=== PATIENT | female | born 1990 | race Caucasian/White ===

== ENCOUNTER 2016-09-12 20:26 | Emergency (ER) | payer BC ==
[~2016-09-12] VITALS: Ht 167.6 cm; Wt 104.3 kg
[~2016-09-12 20:26] MED LIST: ONDA4TAB7 SL
[2016-09-12 20:32] VITALS: TEMP 36.9; Ht 167.6 cm; Wt 104.3 kg
[2016-09-12] MEDS ORDERED: MULT-240 PO (20:57)
[2016-09-12] MEDS ORDERED: LEVOIUD INT UTER (20:57)
[2016-09-12] MEDS ORDERED: RANI150T3 PO (20:57)
--- NOTE | 2016-09-12 20:59 | EMERGENCY ROOM VISIT NOTE ---
History Report prepared by Jay: Soniya Barreto Under the Supervision of: Francois BahO. First contact with patient: 20:42 Chief Complaint: ABDOMINAL PAIN Stated Complaint: LOWER STOMACH PAIN, REFERRED BY History of Present Illness The patient is a 26 year old female who presents to the Emergency Room with complaints of intermittent lower abdominal pain that began on Monday. She currently rates her discomfort as a 3/10 in severity. The patient states that on Monday she noticed lower abdominal cramps. She additionally notes that she developed diarrhea on Monday. No blood. The patient states that the pain is intermittently sharp. She states that her diarrhea has started to subside, but still reports the pain. The patient states that she experiences the pain every 20-30 minutes, noting that it lasts 5-10 seconds. She states that the pain radiates into her back and notes increased abdominal distension and bloating. The patient reports an increase in episodes with eating, drinking, or movement. She states that she has had a decrease in appetite and fluid intake. The patient denies any history of stomach problems or gynecological issues. She is unsure if she may be . The patient states that her menstrual cycle is abnormal. She denies any recent travel, fever, chills, nausea, vomiting, urinary symptoms, vaginal bleeding, or abnormal vaginal discharge. Source of History: patient Onset: Monday Position: abdomen (lower) Symptom Intensity: 3/10 Quality: sharp, cramping Timing: intermittent Modifying Factors (Worsening): eating, drinking, movement Associated Symptoms: + diarrhea, No fevers, No chills, No nausea, No vomiting, No urinary symptoms Note: Associated Symptoms: abdominal distension and bloating Review of Systems See HPI for pertinent positives & negatives. A total of 10 systems reviewed and were otherwise negative. Past Medical & Surgical Medical Problems: (1) Asthma, Unspecified (2) Hematoma Of Vulva (3) Obesity, Nos (4) Personal History Of Gestational Diabetes (5) Sprain Of Ankle Nos Family History No pertinent family history stated. Social History Smoking Status: Former Smoker Alcohol Use: occasionally Occupation Status: employed Current/Historical Medications Scheduled Dicyclomine Hcl (Bentyl), 20 MG PO Q8 Metronidazole (Flagyl), 500 MG PO TID Multiple Vitamins W/ Minerals (Womens One Daily), 1 TAB PO DAILY Ranitidine Hcl (Zantac), 150 MG PO BID Scheduled PRN Hydrocodone/Acetaminophen 5MG/325MG ([place] 5MG/325MG), 1 TABLET PO Q8 PRN for Pain Miscellaneous Medications Levonorgestrel (Iud) (Mirena), 20 MCG INT UTER Allergies Coded Allergies: No Known Allergies (Unverified , 08/02/14) Physical Exam Vital Signs Date Time Temp Pulse Resp B/P (MAP) Pulse Ox O2 Delivery O2 Flow Rate FiO2 09/13/16 00:31 69 18 137/93 98 Room Air 09/12/16 23:30 70 145/105 97 Room Air 09/12/16 23:18 70 18 148/96 97 Room Air 09/12/16 21:26 71 20 142/110 98 Room Air 09/12/16 20:32 36.9 85 20 170/100 96 Room Air Physical Exam GENERAL: alert, well appearing, well nourished, no distress, non-toxic EYE EXAM: normal conjunctiva, PERRL and EOM's grossly intact OROPHARYNX: no exudate, no erythema, lips, buccal mucosa, and tongue normal and mucous membranes are moist NECK: supple, no nuchal rigidity, no adenopathy, non-tender LUNGS: Clear to auscultation. Normal chest wall mechanics, no w/r/r HEART: no murmurs, S1 normal and S2 normal ABDOMEN: Lower abdominal tenderness. abdomen soft, normo-active bowel sounds, no masses, no rebound or guarding. BACK: Back is symmetrical on inspection and there is no deformity, no midline tenderness, no CVA tenderness. SKIN: no rashes and no bruising UPPER EXTREMITIES: upper extremities are grossly normal. LOWER EXTREMITIES: No pitting edema. NEURO EXAM: Normal sensorium, cranial nerves II-XII grossly intact, normal speech, no gross weakness of arms, no gross weakness of legs. Medical Decision & Procedures ER Provider Diagnostic Interpretation: Radiology results have been interpreted by the radiologist and reviewed by me. CHEST AND ABDOMEN 2 VIEWS HISTORY: lower abd pain COMPARISON: Chest and abdominal series 04/12/2010. FINDINGS: The lungs are clear. The cardiomediastinal silhouette is within normal limits. There is no pneumoperitoneum or pneumatosis. The bowel gas pattern is unremarkable. No evidence for bowel obstruction. No pathologic calcifications. Mild S-shaped scoliosis at the thoracolumbar junction. An intrauterine device is seen within the mid pelvis. IMPRESSION: No acute cardiopulmonary process. No evidence for bowel obstruction. Electronically signed by: Ashish Cox M.D. 09/12/2016 10:17 PM Dictated Date/Time: 09/12/2016 10:[address] ABDOMEN AND PELVIS: Impression: Moderate bowel thickening of the ascending colon which may be in part due to underdistention. However, findings are suggestive of a nonspecific colitis. Additional findings: Visualized lower thorax demonstrates bilateral breast augmentation. Decreased attenuation of the liver suggesting hepatic steatosis. The gallbladder, spleen, pancreas, and adrenal glands are unremarkable. The kidneys, ureters and urinary bladder ar unremarkable. An IUD is noted within the endometrium appears to be in appropriate position. Probable dominant follicle within the left ovary measured 2.1 cm. The appendix is unremarkable. Trace free fluid in the pelvis. No acute osseous abnormality. Radiologist: Cholo Edouard MD Study ready at 2314 and initial results transmitted at 2334 Laboratory Results 09/12/16 21:10 Red Blood Count 4.57, Mean Corpuscular Volume 94.5, Mean Corpuscular Hemoglobin 32.2, Mean Corpuscular Hemoglobin Concent 34.0, Mean Platelet Volume 9.4, Neutrophils (%) (Auto) 62.0, Lymphocytes (%) (Auto) 30.1, Monocytes (%) (Auto) 6.1, Eosinophils (%) (Auto) 1.2, Basophils (%) (Auto) 0.4, Neutrophils # (Auto) 8.19, Lymphocytes # (Auto) 3.97, Monocytes # (Auto) 0.81, Eosinophils # (Auto) 0.16, Basophils # (Auto) 0.05 09/12/16 21:10 Test 09/12/16 21:10 White Blood Count 13.21 K/uL (4.8-10.8) Red Blood Count 4.57 M/uL (4.2-5.4) Hemoglobin 14.7 g/dL (12.0-16.0) Hematocrit 43.2 % (37-47) Mean Corpuscular Volume 94.5 fL (80-100) Mean Corpuscular Hemoglobin 32.2 pg (25-34) Mean Corpuscular Hemoglobin Concent 34.0 g/dl (32-36) Platelet Count 304 K/uL (130-400) Mean Platelet Volume 9.4 fL (7.4-10.4) Neutrophils (%) (Auto) 62.0 % Lymphocytes (%) (Auto) 30.1 % Monocytes (%) (Auto) 6.1 % Eosinophils (%) (Auto) 1.2 % Basophils (%) (Auto) 0.4 % Neutrophils # (Auto) 8.19 K/uL (1.4-6.5) Lymphocytes # (Auto) 3.97 K/uL (1.2-3.4) Monocytes # (Auto) 0.81 K/uL (0.11-0.59) Eosinophils # (Auto) 0.16 K/uL (0-0.5) Basophils # (Auto) 0.05 K/uL (0-0.2) RDW Standard Deviation 40.1 fL (36.4-46.3) RDW Coefficient of Variation 11.9 % (11.5-14.5) Immature Granulocyte % (Auto) 0.2 % Immature Granulocyte # (Auto) 0.03 K/uL (0.00-0.02) Urine Color YELLOW Urine Appearance CLEAR (CLEAR) Urine pH 6.0 (4.5-7.5) Urine Specific [place] 1.013 (1.000-1.030) Urine Protein NEG (NEG) Urine Glucose (UA) NEG (NEG) Urine Ketones NEG (NEG) Urine Occult Blood NEG (NEG) Urine Nitrite NEG (NEG) Urine Bilirubin NEG (NEG) Urine Urobilinogen NEG (NEG) Urine Leukocyte Esterase NEG (NEG) Anion Gap 8.0 mmol/L (3-11) Est Creatinine Clear Calc Drug Dose 110.9 ml/min Estimated GFR () 97.6 Estimated GFR (Non- 84.2 BUN/Creatinine Ratio 7.4 (10-20) Lactic Acid Level 1.6 mmol/L (0.4-2.0) Calcium Level 9.3 mg/dl (8.5-10.1) Total Bilirubin 0.5 mg/dl (0.2-1) Aspartate Amino Transf (AST/SGOT) 23 U/L (15-37) Alanine Aminotransferase (ALT/SGPT) 49 U/L (12-78) Alkaline Phosphatase 62 U/L (45-117) Total Protein 8.5 gm/dl (6.4-8.2) Albumin 4.5 gm/dl (3.4-5.0) Globulin 4.0 gm/dl (2.5-4.0) Albumin/Globulin Ratio 1.1 (0.9-2) Lipase 215 U/L (73-393) Human Chorionic Gonadotropin, Qual NEG (NEG) Laboratory results per my review. Medications Administered Medications (Trade) Dose Ordered Sig/Cristal Route Start Time Stop Time Status Last Admin Dose Admin Dicyclomine HCl (Bentyl Tab) 20 mg NOW STAT PO 09/12/16 21:02 09/12/16 21:04 DC 09/12/16 21:23 20 MG Ketorolac Tromethamine (Toradol Inj) 30 mg NOW STAT IV 09/12/16 21:02 09/12/16 21:04 DC 09/12/16 21:24 30 MG Metronidazole (Flagyl Tab) 500 mg NOW STAT PO 09/12/16 23:42 09/12/16 23:43 DC 09/12/16 23:50 500 MG Acetaminophen/ Hydrocodone Bitart ([place] 5/325mg Home Pack) 1 homepack UD ONCE PO 09/13/16 00:30 09/13/16 00:31 DC 09/13/16 00:39 1 HOMEPACK ED Course 2049: The patient was evaluated in room B10. A complete history and physical exam was performed. 2101: Ordered Toradol Inj 30 mg IV, Bentyl Tab 20 mg PO. 8: I reevaluated the patient and she is feeling better. 2: Ordered Flagyl Tab 500 mg PO. 9: I reevaluated the patient and she is resting comfortably. I updated her on her results and I discussed the treatment plan. She verbalized complete understanding and agreement. She is ready to go home shortly. 2359: Ordered [place] 5/325 Tab 1 tab. Medical Decision Differential diagnoses includes but is not limited to gastritis, peptic ulcer disease, GERD, gallbladder disease, pancreatitis, small bowel obstruction, acute coronary syndrome, pericarditis, ischemic bowel, irritable bowel disease, irritable bowel syndrome, appendicitis, diverticulitis, malignancy, hernia, urinary tract infection, torsion, /ectopic (if female), perforation, trauma, infectious. Medication Reconciliation: I attest that I have personally reviewed the patient' s current medication list. Blood pressure screening: Patient was found to have an elevated blood pressure and was referred to their primary doctor for recheck and further treatment. No risk factors for C. difficile no recent travel for other infectious diarrhea. Patient with colitis and no prior history of inflammatory bowel disease. No other acute GI or findings, no evidence of bacteremia/sepsis, doubt ischemic colitis. Patient well-appearing here, mild leukocytosis noted, stable vital signs and no fevers. Pain improved following medication here, patient with no vomiting. Discussed need for close follow-up and possible need for additional GI evaluation. Discussed use of antibiotics here. Patient verbalized understanding of all this. All questions answered bedside. Discussed with patient symptoms to watch and return for, she was agreeable with plan. Impression Primary Impression: LOWER ABDOMINAL PAIN, UNSPECIFIED Additional Impressions: Colitis Diarrhea Scribe Attestation The scribe's documentation has been prepared under my direction and personally reviewed by me in its entirety. I confirm that the note above accurately reflects all work, treatment, procedures, and medical decision making performed by me. Departure Information Dispostion Home / Self-Care Prescriptions Hydrocodone/Acetaminophen 5MG/325MG ([place] 5MG/325MG) Tab 1 TABLET PO Q8 Y for Pain, #5 TAB PRN PAIN Prov: Pepper Vazquez, DO 09/12/16 Dicyclomine Hcl (BENTYL) 20 Mg Tab 20 MG PO Q8 for Pain, #20 TAB Prov: Pepper Vazquez, DO 09/12/16 Metronidazole (FLAGYL) 500 Mg Tab 500 MG PO TID for 7 Days, #21 TAB Prov: Pepper Vazquez, DO 09/12/16 Referrals No Doctor, Assigned (PCP) Forms HOME CARE DOCUMENTATION FORM, IMPORTANT VISIT INFORMATION Patient Instructions My [facility] Additional Instructions Please take the antibiotic as prescribed. You may use the pain medication or cramping medication as prescribed. Do not take the pain medication and drive or drink alcohol. Please make sure you're drinking plenty of water. Please call and follow up with your family doctor in the next 2-3 days. If you develop worsening pain, notice blood with the bowel movement, have vomiting, fevers, or you have any other new or concerning symptoms, please return the emergency room. Problem Qualifiers Additional Impressions: Diarrhea Diarrhea type: unspecified type Qualified Codes: R19.7 - Diarrhea, unspecified
[2016-09-12] MEDS ORDERED: KETOROLAC TROMETHAMINE 30 MG/ML VIAL IV STA (21:02)
[2016-09-12] MEDS ORDERED: DICYCLOMINE HCL 20 MG TAB PO STA (21:02)
[2016-09-12 21:23] LABS: BASO % 0.4 %; BASO ABS # 0.05 K/uL (0-0.2); COMPLETE YES; EOS % 1.2 %; HEMATOCRIT 43.2 % (37-47); IG% 0.2 %; LYMPH % 30.1 %; LYMPH ABS # 3.97 K/uL (1.2-3.4); MEAN CELL VOLUME 94.5 fL (80-100); MEAN CORPUSCULAR HEMOGLOBIN 32.2 pg (25-34); MEAN PLATELET VOLUME 9.4 fL (7.4-10.4); MONO % 6.1 %; PLATELET COUNT 304 K/uL (130-400); RED BLOOD COUNT 4.57 M/uL (4.2-5.4); WHITE BLOOD COUNT 13.21 K/uL (4.8-10.8)
[2016-09-12 21:29] LABS: URINE APPEARANCE CLEAR (CLEAR); URINE BILIRUBIN NEG (NEG); URINE COLOR YELLOW; URINE NITRITE NEG (NEG); URINE SPECIFIC GRAVITY 1.013 (1.000-1.030); UROBILINOGEN NEG (NEG); ZZUR CULT IF INDIC CLEAN CATCH NO
[2016-09-12 21:32] LABS: MANUAL MICROSCOPIC REQUIRED? NO; REVIEW REQ? NO
[2016-09-12 21:38] LABS: BUN/CREATININE RATIO 7.4 (10-20); CALCIUM 9.3 mg/dl (8.5-10.1); CREATININE 0.93 mg/dl (0.60-1.20); POTASSIUM 3.5 mmol/L (3.5-5.1)
[2016-09-12 21:41] LABS: ALB/GLOB RATIO 1.1 (0.9-2)
[2016-09-12 21:43] LABS: PREG INTERNAL NEGATIVE QC NEG CLEAR BACKGROUND; PREG INTERNAL POSITIVE QC POS CONTROL LINE
--- NOTE | 2016-09-12 22:18 | DIAGNOSTIC IMAGING REPORT ---
CHEST AND ABDOMEN 2 VIEWS HISTORY: lower abd pain COMPARISON: Chest and abdominal series 04/12/2010. FINDINGS: The lungs are clear. The cardiomediastinal silhouette is within normal limits. There is no pneumoperitoneum or pneumatosis. The bowel gas pattern is unremarkable. No evidence for bowel obstruction. No pathologic calcifications. Mild S-shaped scoliosis at the thoracolumbar junction. An intrauterine device is seen within the mid pelvis. IMPRESSION: No acute cardiopulmonary process. No evidence for bowel obstruction. Electronically signed by: Ashish Cox M.D. 09/12/2016 10:17 PM Dictated Date/Time: 09/12/2016 10:16 PM
[2016-09-12] MEDS ORDERED: METRONIDAZOLE 250 MG TAB PO STA (23:42)
[2016-09-12] MEDS ORDERED: DICY20TA35 PO (23:58)
[2016-09-12] MEDS ORDERED: HYDR-5688 PO (23:58)
[2016-09-12] MEDS ORDERED: METR500T PO (23:58)
[2016-09-12] MEDS ORDERED: HYDROCODONE/ACETAMOPHEN 5/325MG TAB PO STA (23:59)
[2016-09-13] MEDS ORDERED: NORCO 5/325MG HOME PACK PO ONE (00:30)
[2016-09-13 00:31] VITALS: BP 137/93; PULSE 69; O2SAT 98
--- NOTE | 2016-09-13 06:53 | DIAGNOSTIC IMAGING REPORT ---
CT OF THE ABDOMEN AND PELVIS WITHOUT CONTRAST CLINICAL HISTORY: Lower abdominal pain and diarrhea. COMPARISON STUDY: Abdominal series April 12, 2010 and September 12, 2016. TECHNIQUE: Axial images of the abdomen and pelvis were obtained without IV contrast. Images were reviewed in the axial, sagittal, and coronal planes. FINDINGS: The visualized portions of the lower chest demonstrate bilateral silicone breast implants. No pneumatosis, free air or portal venous gas is present. There is fatty infiltration of the liver. The spleen, adrenal glands, kidneys and pancreas are unremarkable on this unenhanced exam. There is no hydronephrosis. There is no evidence for a bowel obstruction. There is moderate wall thickening of the ascending colon. There is trace associated pericolonic infiltration. The appendix is normal. An IUD is in place. The ovaries are not enlarged. Skeletal structures are unremarkable. There is no lymphadenopathy. IMPRESSION: 1. Moderate wall thickening of the ascending colon consistent with a nonspecific colitis. Normal appendix. 2. Fatty infiltration of the liver. Electronically signed by: Dagoberto Lugo M.D. 09/13/2016 6:52 AM Dictated Date/Time: 09/13/2016 6:48 AM
== END 2016-09-13 00:40 | disposition home or self-care (01) ==
LOC: C.EDB 20:27
DX: K52.9 Noninfective gastroenteritis and colitis, unspecified (principal); R10.30 Lower abdominal pain, unspecified; R19.7 Diarrhea, unspecified; J45.909 Unspecified asthma, uncomplicated; Z87.828 Personal history of other (healed) physical injury and trauma; Z87.891 Personal history of nicotine dependence; Z79.899 Other long term (current) drug therapy

== ENCOUNTER 2016-12-04 21:15 | Emergency (ER) | payer BC ==
[~2016-12-04] VITALS: Ht 170.2 cm; Wt 105.5 kg
[~2016-12-04 21:15] MED LIST changes: +HYDR-5688 PO; +LEVOIUD INT UTER; +MULT-240 PO; -ONDA4TAB7 SL; +RANI150T3 PO
[2016-12-04 21:25] VITALS: BP 167/96; PULSE 83; TEMP 36.6; O2SAT 98; Ht 170.2 cm; Wt 105.5 kg
[2016-12-04] MEDS ORDERED: METOCLOPRAMIDE HCL INJ 5 MG/ML 2 ML VIAL IV STA (22:01)
[2016-12-04] MEDS ORDERED: SODIUM CHLORIDE 0.9% 1000ML 1,000 ML IV STA (22:01)
[2016-12-04] MEDS ORDERED: DiphenhydrAMINE HCL 50 MG/ML VIAL IV STA (22:01)
[2016-12-04] MEDS ORDERED: KETOROLAC TROMETHAMINE 30 MG/ML VIAL IV STA (22:01)
--- NOTE | 2016-12-05 03:15 | EMERGENCY ROOM VISIT NOTE ---
History First contact with patient: 21:58 Chief Complaint: HEADACHE Stated Complaint: EXTREME ALEMAN,VOMITING History of Present Illness The patient is a 26 year old female who presents to the Emergency Room with complaints of headache with nausea and vomiting since in severity for the past day. Patient woke up with a mild headache. She was working outside and headache got worse and tried Tylenol with no relief of symptoms. Patient has a history of migraines. This feels similar. Headache is located in the left frontal region. Currently 8 out of 10 described as throbbing. Nothing makes it better or worse. It does not Radiate. Patient denies sudden onset headache , neck status, fever, chills, cold symptoms, localized weakness, vision problems , chest pain, abdominal pain or any other medical complaints. Review of Systems See HPI for pertinent positives & negatives. A total of 10 systems reviewed and were otherwise negative. Past Medical/Surgical History Medical Problems: (1) Asthma, Unspecified (2) Hematoma Of Vulva (3) Obesity, Nos (4) Personal History Of Gestational Diabetes (5) Sprain Of Ankle Nos Social History Smoking Status: Never Smoker Alcohol Use: occasionally Drug Use: none Housing Status: lives with family Occupation Status: employed Current/Historical Medications Scheduled Multiple Vitamins W/ Minerals (Womens One Daily), 1 TAB PO DAILY Ranitidine Hcl (Zantac), 150 MG PO QAM Miscellaneous Medications Levonorgestrel (Iud) (Mirena), 20 MCG INT UTER Physical Exam Vital Signs Date Time Temp Pulse Resp B/P (MAP) Pulse Ox O2 Delivery O2 Flow Rate FiO2 12/04/16 21:25 36.6 83 16 167/96 98 Room Air Pain Rating (0-10): 1.0 Physical Exam VITALS: Vitals are noted on the nurse's note and reviewed by myself. Vital signs stable. GENERAL: Pleasant female, in no acute distress, nondiaphoretic, well-developed well-nourished. SKIN: The skin was without rashes, erythema, edema, or bruising. There is no tenting of the skin. Capillary reflex less than 2 seconds. HEAD: Normocephalic atraumatic. EARS: External auditory canals clear, tympanic membranes pearly francisco without erythema or effusion bilaterally. EYES: Pupils equal round and reactive to light and accommodation. Conjunctivae without injection, sclerae without icterus. Extraocular movements intact. NOSE: Patent, turbinates without inflammation or discharge. No sinus tenderness. MOUTH: Mucous membranes moist. Pharynx without erythema or exudate. Uvula midline. Airway patent. Tongue does not deviate. NECK: Supple without nuchal rigidity. No lymphadenopathy. No thyromegaly. Cervical spine is nontender. No JVD. HEART: Regular rate and rhythm without murmurs gallops or rubs. LUNGS: Clear to auscultation bilaterally without wheezes, rales or rhonchi. No dullness to percussion. No retractions or accessory muscle use. ABDOMEN: Positive bowel sounds x 4. Normal tympanic percussion. Soft, nontender, without masses or organomegaly. Cassidy sign negative. No guarding or rebound tenderness. MUSCULOSKELETAL: No muscle atrophy, erythema, or edema noted. NEURO: Patient was alert and oriented to person place and time. Normal sensation to light and sharp touch. No focal neurological deficits. Cranial nerves II-12 grossly intact. No pronator drift. Cerebellar exam intact. Medical Decision & Procedures Medications Administered Medications (Trade) Dose Ordered Sig/Cristal Route Start Time Stop Time Status Last Admin Dose Admin Ketorolac Tromethamine (Toradol Inj) 30 mg NOW STAT IV 12/04/16 22:01 12/04/16 22:03 DC 12/04/16 22:36 30 MG Metoclopramide HCl (Reglan Inj) 10 mg NOW STAT IV 12/04/16 22:01 12/04/16 22:03 DC 12/04/16 22:36 10 MG Diphenhydramine HCl (Benadryl Inj) 12.5 mg NOW STAT IV 12/04/16 22:01 12/04/16 22:04 DC 12/04/16 22:36 12.5 MG Sodium Chloride 1,000 ml @ 999 mls/hr Q1H1M STAT IV 12/04/16 22:01 12/04/16 23:01 DC 12/04/16 22:01 999 MLS/HR ED Course Prior records/ancillary studies reviewed. Additional history obtained from family. Triage Nursing notes reviewed. The patient's history was concerning for headache. Differential diagnosis: Etiologies such as migraine headache, meningitis, sinusitis, CO exposure, ICH, SAH, infection, tumor, headache, sinus thrombosis, arterial dissection, as well as others were entertained. Physical examination findings: As above. Non-focal. ER treatment provided: Toradol, Reglan, Benadryl, IV fluids On reassessment the patient felt better. Diagnostics interpreted by me: Deferred This appears to be consistent with migraine. Patient has a long-standing history of this and symptoms are similar. Patient was neurovascularly and neurologically intact. She is well-appearing. She had no signs of meningitis. She is advised to rest, stay well-hydrated and to follow-up family care in a few days or here in the ER sooner for headache, fevers, confusion, lethargy, worsening signs or symptoms or as needed. By the evaluation outlined above emergent etiologies such as meningitis, sinusitis, CO exposure, ICH, SAH, infection, temporal arteritis, tumor, sinus thrombosis, arterial dissection, as well as others were deemed relatively unlikely. The pt informed about the findings as listed above. All questions were answered and pleased with the treatment. Return instructions were outlined and the patient was discharged in stable condition. Referral: The patient was referred back to their primary care physician for follow-up in 2 to 3 days for a recheck of the current condition. Medical Decision As above Impression Primary Impression: Migraine Departure Information Dispostion Home / Self-Care Condition GOOD Referrals No Doctor, Assigned (PCP) Forms HOME CARE DOCUMENTATION FORM, IMPORTANT VISIT INFORMATION Patient Instructions Headaches Migraine and Tension, My [facility] Additional Instructions DO NOT drive, drink alcohol, operate machinery, or perform dangerous activities today. You were given medications in the ER that can affect your ability to safely function or operate a vehicle. Rest today in a quiet, peaceful, dark environment and get a full 8-10 hrs of sleep tonight. Avoid loud noises, smoke/smoking, alcohol, bright lights, stress, or physical exertion today to minimize the chance the headache may return. Continue current medications. Ibuprofen(Motrin, Advil) may be used for fever or pain. Use 600mg every six hours as needed. Take with food. Avoid using more than 2400mg in a 24 hour period. Do not use 2400mg per day for more than three consecutive days without physician direction. Prolonged inappropriate use can lead to stomach upset or ulcers. (AND/OR) Acetaminophen(Tylenol) may be used for fever or pain. Use 1000mg every six hours as needed. Avoid using more than 3000mg in a 24 hour period. Return to the ER for passing out, worsening headache, vision problems, neck stiffness/pain, fevers, vomiting, worsening of your condition, or as needed. Follow up with your primary physician and/or a neurologist in 2-3 days for a recheck of your current condition. Problem Qualifiers Primary Impression: Migraine Migraine type: without aura Status migrainosus presence: without status migrainosus Intractability: not intractable Qualified Codes: G43.009 - Migraine without aura, not intractable, without status migrainosus
== END 2016-12-04 23:53 | disposition home or self-care (01) ==
LOC: C.EDB 21:16 → C.EDA 23:53
DX: G43.009 Migraine without aura, not intractable, without status migrainosus (principal); J45.909 Unspecified asthma, uncomplicated; E66.9 Obesity, unspecified

== ENCOUNTER 2022-06-16 10:28 | Observation (INO) ==
[2022-06-16 12:38] LABS: Basophils # (auto) 0.13 K/uL (0-0.2); Basophils % (auto) 0.6 %; Eosinophils # (auto) 0.23 K/uL (0-0.50); Hematocrit (blood only) 43.8 % (37.0-47.0); Hemoglobin 14.9 g/dl (12.0-16.0); Immature Granulocytes # (auto) 0.13 K/uL (0.01-0.20); Immature Granulocytes % (auto) 0.6 %; Lymphocytes # (auto) 2.15 K/uL (1.2-3.4); Lymphocytes % (auto) 9.7 %; Mean Corpuscular Hemoglobin 32.7 pg (25.0-34.0); Mean Corpuscular Volume 96.3 fL (80.0-100.0); Mean Platelet Volume 9.5 fL (9.4-12.4); Monocytes # (auto) 0.92 K/uL (0.11-0.59); Monocytes % (auto) 4.2 %; Neutrophils # (auto) 18.58 K/uL (1.40-6.50); Neutrophils % (auto) 83.9 %; Platelet Count 454 K/uL (130-400); RDW Coefficient of Variation 11.9 % (11.5-14.5); RDW Standard Deviation 41.5 fL (36.4-46.3); Red Blood Count 4.55 M/uL (4.20-5.40); White Blood Count 22.14 K/ul (4.8-10.8)
[2022-06-16] MEDS ORDERED: ACETAMINOPHEN 1,000 MG/100 ML VIAL IV STA (12:50)
[2022-06-16] MEDS ORDERED: SODIUM CHLORIDE 0.9% 1000ML 1,000 ML IV ONE (12:50)
[2022-06-16] MEDS ORDERED: ONDANSETRON INJ 2 MG/ML 2 ML VIAL IV STA ×2 (12:50→15:39)
--- NOTE | 2022-06-16 12:54 | Emergency Department Note ---
Impression & Plan Leukocytosis, Abdominal pain, RUQ, Acute epigastric pain ED Provider Note Name: KARIE DOHERTY Age: 32 Sex: F Arrives Via: Walk-In Informant: Patient ED Provider: David Mccabe MD Chief Complaint: Epigastric discomfort Impression: As per impressions above Medical Decision Makin-year-old female arrives for evaluation of epigastric pain. Third time this is occurred over the last month. Unrelenting this time with associated nausea. On examination right upper quadrant epigastric tenderness palpation. Laboratory results White count 22. Ultrasound right upper quadrant reveals no concerning findings per radiologist other than stone. She is continuing to have right upper quadrant pain this CT was obtained which also was read as unremarkable. On multiple repeat evaluations patient continues to have right upper quadrant tenderness palpation despite pain control with Dilaudid eventually. I discussed with general surgery given my concerns of continue abdominal pain elevated white blood cell count and her exam being very consistent with cholecystitis. They will evaluate patient further. Prior Medical Record and Triage/Nursing Notes reviewed by Me Differentials:Cholecystitis, cholelithiasis, pancreatitis, GERD, aortic path ology, pyelonephritis, renal colic amongst many other pathologies considered Vital Signs: reviewed and remarkable for no significant abnormalities Interventions: Normal saline bolus 1 L IV, Zofran 4 mg IV, Tylenol 1 g IV Labs:Reviewed and remarkable for elevated white blood cell count Imaging:Ultrasound gallbladder as per my informal interpretation there is stones throughout the gallbladder without any thickened gallbladder wall or pericholecystic fluid. CT of the abdomen pelvis with IV contrast as per my informal interpretation. There is no overt obstruction, free air or free fluid. She had a period see radiologist report for full read Consults:[facility] Surg Service Plan: Disposition:Hospitalization Condition: Good History of Present Illness:32-year-old female arrives for evaluation of abdominal pain. Patient with 3 episodes of the last month of 5 to 6 hours of right upper quadrant epigastric abdominal pain associated with nausea vomiting. The first 2 times pain resolved on its own however today it has not resolved. Continues to have epigastric right upper quadrant pain. Associated nausea vomiting. Also notes some diarrhea today. Fevers, chills, chest pain, shortness of breath, back pain, flank pain, urinary/other concerning signs or symptoms. No previous abdominal issues. All 3 times seem to have occurred after eating ice cream/cake. Past History:HTN. Previously required some eye surgery, no previous abdominal surgeries. Mother has a history of gallbladder out in her 30s Home Medications:Lisinopril Allergies:No known drug allergies Vitals:Blood Pressure: 151/86, Pulse 91, RR 16, T 36.8C, O2 99% on RA Physical Exam: GENERAL: Patient is uncomfortable appearing and in moderate distress. EYES: No scleral icterus, unremarkable pupils. ENT: Mucous membranes dry, no nasal congestion. GASTROINTESTINAL: Epigastric/right upper quadrant tenderness palpation and some guarding, no overt peritonitis of the rest of the abdomen. EXTREMITIES: Normal motion all extremities, no cyanosis, no edema. NEUROLOGIC: Alert and oriented, no acute motor or sensory deficits, no focal weakness, cranial nerves grossly intact. SKIN: No rash, no jaundice, no diaphoresis. PSYCH: Appropriate GCS: 15 ED Course: Times/Reassessments: Patient with gradually worsening pain despite initial improvement with Tylenol IV. She was given narcotic with improvement in pain David Mccabe MD Past Med/Surg History Medical History Anxiety GERD (gastroesophageal reflux disease) Migraine Surgical History History of breast surgery elective enlargement, bilateral History of colonoscopy History of colposcopy Family History Denies family history of Ovarian cancer Breast cancer Colorectal cancer Social History Smoking Status: Never smoker Hx Alcohol Use: No Hx Substance Use: No Preferred Language: [place] Communication Ability: Effective Taper Operator Required: No Beliefs That Will Affect Care: None Current Living Situation: Family Other Information That Helps Us Care for You: No Feels Safe at Home: Yes Safety Concerns: Feels Safe At This Time Assistive Devices: Glasses Allergies Allergies Allergy/AdvReac Type Severity Reaction Status Date / Time No Known Allergies Allergy Verified 06/16/22 15:53 Home Meds Home Medications Medication Instructions Recorded Confirmed fluoxetine 20 mg capsule (Prozac) 20 mg PO DAILY 08/22/19 06/16/22 levonorgestrel 21 mcg/24 hours (8 20 mcg intrauterine CONTINOUS 08/22/19 06/16/22 yrs) 52 mg intrauterine device (Mirena) omeprazole 20 mg tablet,delayed 20 mg PO DAILY 09/10/20 06/16/22 release fluoxetine 40 mg capsule 40 mg PO DAILY 06/16/22 06/16/22 multivitamin 1 tab PO DAILY 06/16/22 06/16/22 trazodone 50 mg tablet 50 mg PO HS PRN Sleep 06/16/22 06/16/22 Results & Data (ED) Vital Signs Vital Signs - 24 hr 06/16/22 10:29 06/16/22 10:29 06/16/22 13:20 Temperature 36.8 C 36.8 C Temperature Source Temporal Artery Scan Temporal Artery Scan Pulse Rate 91 H 106 H Pulse Rate from SpO2 Sensor 107 H Pulse Rhythm Respiratory Rate 16 16 16 Blood Pressure 151/86 H 140/79 Blood Pressure Mean 107 99 Pulse Oximetry 99 100 Oxygen Delivery Method Room Air Sepsis Recent Fever Within 48 Hours No Sepsis New/Unexplained Change in Mental Status N/A Sepsis Action Taken by Nursing No Action Required 06/16/22 13:20 06/16/22 13:28 06/16/22 16:07 Temperature Temperature Source Pulse Rate 103 H 98 H 108 H Pulse Rate from SpO2 Sensor Pulse Rhythm Regular Respiratory Rate 16 20 Blood Pressure 157/80 H Blood Pressure Mean 105 Pulse Oximetry 99 98 Oxygen Delivery Method Room Air Room Air Sepsis Recent Fever Within 48 Hours Sepsis New/Unexplained Change in Mental Status Sepsis Action Taken by Nursing Laboratory Data 06/16/22 11:55 06/16/22 11:55 Lab Results 06/16/22 06/16/22 06/16/22 Range/Units 11:55 11:55 13:10 WBC 22.14 H (4.8-10.8) K/ul RBC 4.55 (4.20-5.40) M/uL Hgb 14.9 (12.0-16.0) g/dl Hct 43.8 (37.0-47.0) % MCV 96.3 (80.0-100.0) fL MCH 32.7 (25.0-34.0) pg MCHC 34.0 (32.0-36.0) g/dL RDW Std Deviation 41.5 (36.4-46.3) fL RDW Coeff of Audi 11.9 (11.5-14.5) % Plt Count 454 H (130-400) K/uL MPV 9.5 (9.4-12.4) fL Immature Gran % (Auto) 0.6 % Neut % (Auto) 83.9 % Lymph % (Auto) 9.7 % [place] % (Auto) 4.2 % Eos % (Auto) 1.0 % Baso % (Auto) 0.6 % Neut # (Auto) 18.58 H (1.40-6.50) K/uL Lymph # (Auto) 2.15 (1.2-3.4) K/uL [place] # (Auto) 0.92 H (0.11-0.59) K/uL Eos # (Auto) 0.23 (0-0.50) K/uL Baso # (Auto) 0.13 (0-0.2) K/uL Immature Gran # (Auto) 0.13 (0.01-0.20) K/uL Sodium 136 (136-145) mmol/L Potassium 3.8 (3.5-5.1) mmol/L Chloride 100 (98-107) mmol/L Carbon Dioxide 22 (21-32) mmol/L Anion Gap 14 H (3-11) BUN 16 (6-23) mg/dl Creatinine 0.89 (0.6-1.2) mg/dl Est Cr Clr Drug Dosing 109.3 ml/min Est GFR ( Amer) 98.7 ml/min Est GFR (Non-Af Amer) 85.2 ml/min BUN/Creatinine Ratio 18.0 (10-20) Glucose 151 H (70-99(Fasting)) mg/dl Calcium 9.8 (8.6-10.3) mg/dl Total Bilirubin 0.6 (0.2-1.0) mg/dl AST 24 (13-39) U/L ALT 35 (7-52) U/L Alkaline Phosphatase 65 (34-104) U/L Total Protein 8.5 H (6.0-8.3) gm/dl Albumin 4.9 (3.4-5.0) gm/dl Globulin 3.6 (2.5-4.0) gm/dl Albumin/Globulin Ratio 1.4 (0.9-2) Lipase 25 (11-82) U/L Urine Color Dark Yellow Urine Appearance Cloudy A (Clear) Urine pH 5.5 (4.5-7.5) Ur Specific [place] 1.031 H (1.000-1.030) Urine Protein 2+ H (Negative) Urine Glucose (UA) Negative (Negative) Urine Ketones 1+ H (Negative) Urine Blood Negative (Negative) Urine Nitrite Negative (Negative) Urine Bilirubin Negative (Negative) Urine Urobilinogen Negative (Negative) Ur Leukocyte Esterase Negative (Negative) Urine WBC (Auto) 5-10 H (0-5) /hpf Urine RBC (Auto) 0-4 (0-4) /hpf U Hyaline Cast (Auto) 10-30 H (0-5) /lpf U Epithel Cells (Auto) >30 H (0-5) /lpf Urine Bacteria (Auto) 1+ H (Negative) SARS-CoV-2, RNA, NAAT (NEGATIVE) 06/16/22 Range/Units 16:08 WBC (4.8-10.8) K/ul RBC (4.20-5.40) M/uL Hgb (12.0-16.0) g/dl Hct (37.0-47.0) % MCV (80.0-100.0) fL MCH (25.0-34.0) pg MCHC (32.0-36.0) g/dL RDW Std Deviation (36.4-46.3) fL RDW Coeff of Audi (11.5-14.5) % Plt Count (130-400) K/uL MPV (9.4-12.4) fL Immature Gran % (Auto) % Neut % (Auto) % Lymph % (Auto) % [place] % (Auto) % Eos % (Auto) % Baso % (Auto) % Neut # (Auto) (1.40-6.50) K/uL Lymph # (Auto) (1.2-3.4) K/uL [place] # (Auto) (0.11-0.59) K/uL Eos # (Auto) (0-0.50) K/uL Baso # (Auto) (0-0.2) K/uL Immature Gran # (Auto) (0.01-0.20) K/uL Sodium (136-145) mmol/L Potassium (3.5-5.1) mmol/L Chloride (98-107) mmol/L Carbon Dioxide (21-32) mmol/L Anion Gap (3-11) BUN (6-23) mg/dl Creatinine (0.6-1.2) mg/dl Est Cr Clr Drug Dosing ml/min Est GFR ( Amer) ml/min Est GFR (Non-Af Amer) ml/min BUN/Creatinine Ratio (10-20) Glucose (70-99(Fasting)) mg/dl Calcium (8.6-10.3) mg/dl Total Bilirubin (0.2-1.0) mg/dl AST (13-39) U/L ALT (7-52) U/L Alkaline Phosphatase (34-104) U/L Total Protein (6.0-8.3) gm/dl Albumin (3.4-5.0) gm/dl Globulin (2.5-4.0) gm/dl Albumin/Globulin Ratio (0.9-2) Lipase (11-82) U/L Urine Color Urine Appearance (Clear) Urine pH (4.5-7.5) Ur Specific [place] (1.000-1.030) Urine Protein (Negative) Urine Glucose (UA) (Negative) Urine Ketones (Negative) Urine Blood (Negative) Urine Nitrite (Negative) Urine Bilirubin (Negative) Urine Urobilinogen (Negative) Ur Leukocyte Esterase (Negative) Urine WBC (Auto) (0-5) /hpf Urine RBC (Auto) (0-4) /hpf U Hyaline Cast (Auto) (0-5) /lpf U Epithel Cells (Auto) (0-5) /lpf Urine Bacteria (Auto) (Negative) SARS-CoV-2, RNA, NAAT NEGATIVE (NEGATIVE) Administered Medications Sodium Chloride (Nss 1000ml) 1,000 mls @ 100 mls/hr IV .Q10H DENISE Stop: 07/16/22 19:35 Last Admin: 06/17/22 03:45 Dose: 100 mls/hr Documented By: Infusion: 06/17/22 03:45 Dose: 100 mls/hr Documented By: Infusion: 06/17/22 00:09 Dose: 100 mls/hr Documented By: Infusion: 06/17/22 00:09 Dose: 0 mls/hr Documented By: Admin: 06/16/22 19:59 Dose: 100 mls/hr Documented By: YRIS Piperacillin Sod/Tazobactam (Sod 4.5 gm/ Dextrose) 120 mls @ 30 mls/hr IV Q8H DENISE; Protocol Stop: 06/26/22 19:59 Last Admin: 06/17/22 04:13 Dose: 30 mls/hr Documented By: Infusion: 06/17/22 00:32 Dose: 0 mls/hr Documented By: Admin: 06/16/22 20:13 Dose: 30 mls/hr Documented By: YRIS Discontinued Medications Hydromorphone HCl (Hydromorphone Inj 1 Mg/Ml Syringe) 1 mg IV NOW STA Stop: 06/16/22 15:40 Last Admin: 06/16/22 16:04 Dose: 1 mg Documented By: RENAE Sodium Chloride (Nss 1000ml) 1,000 mls @ 999 mls/hr IV .Q1H1M ONE Stop: 06/16/22 13:50 Last Infusion: 06/16/22 14:27 Dose: 0 mls/hr Documented By: Admin: 06/16/22 13:16 Dose: 999 mls/hr Documented By: RENAE Acetaminophen (Ofirmev) 1,000 mg in 100 mls @ 400 mls/hr IV NOW STA Stop: 06/16/22 13:04 Last Infusion: 06/16/22 13:36 Dose: 0 mls/hr Documented By: Admin: 06/16/22 13:18 Dose: 400 mls/hr Documented By: RENAE Sodium Chloride (Nss 1000ml) 250 mls @ 999 mls/hr IV .Q16M ONE Stop: 06/16/22 23:38 Last Infusion: 06/17/22 00:10 Dose: 0 mls/hr Documented By: Admin: 06/16/22 23:34 Dose: 999 mls/hr Documented By: YRIS Ioversol (Optiray 350 100ml) 90 ml IV ONCE ONE Stop: 06/16/22 15:00 Last Admin: 06/16/22 14:59 Dose: 90 ml Documented By: HARIS Ondansetron HCl (Ondansetron Inj 2 Mg/Ml 2 Ml Vial) 4 mg IV NOW STA Stop: 06/16/22 12:51 Last Admin: 06/16/22 13:17 Dose: 4 mg Documented By: RENAE Ondansetron HCl (Ondansetron Inj 2 Mg/Ml 2 Ml Vial) 4 mg IV NOW STA Stop: 06/16/22 15:40 Last Admin: 06/16/22 16:03 Dose: 4 mg Documented By: RENAE Discharge Plan Visit Data Chief Complaint: Abdominal Pain Stated Complaint: ABDOMINAL PAIN ED Provider: David Mccabe Discharge Problem: Leukocytosis, Abdominal pain, RUQ, Acute epigastric pain Patient Disposition: Admitted As Inpatient Discharge Instructions Interventions: ED Discharge Assessment Last Done: 06/16/22 19:22
[2022-06-16 13:26] LABS: Appearance Urine Cloudy (Clear); Bacteria Urine Automated 1+ (Negative); Bilirubin Urine Negative (Negative); Blood Urine Negative (Negative); Color Urine Dark Yellow; Epithelial Cell Urine Auto >30 /lpf (0-5); Glucose Urine UA Negative (Negative); Ketones Urine 1+ (Negative); Leukocyte Esterase Urine Negative (Negative); Nitrite Urine Negative (Negative); Protein Urine 2+ (Negative); Specific Gravity Urine 1.031 (1.000-1.030); Urobilinogen Urine Negative (Negative); pH Urine 5.5 (4.5-7.5)
[2022-06-16 13:27] LABS: Albumin Level 4.9 gm/dl (3.4-5.0); Bilirubin,Total 0.6 mg/dl (0.2-1.0); Calcium 9.8 mg/dl (8.6-10.3); Potassium 3.8 mmol/L (3.5-5.1)
[2022-06-16 13:33] LABS: Albumin Globulin Ratio 1.4 (0.9-2); Creatinine Clr Calc Pharmacy 109.3 ml/min; Est GFR (African American) 98.7 ml/min; Est GFR (Non-African American) 85.2 ml/min; Globulin 3.6 gm/dl (2.5-4.0); Total Protein 8.5 gm/dl (6.0-8.3)
[2022-06-16 13:39] LABS: RBC Urine Automated 0-4 /hpf (0-4)
--- NOTE | 2022-06-16 14:40 | Ultrasound Report ---
ABDOMINAL ULTRASOUND, RIGHT UPPER QUADRANT HISTORY: RUQ pain, elevated wbc. COMPARISON: Abdomen and pelvis CT 09/12/2016. FINDINGS: Pancreas: The the visualized pancreas demonstrates a normal echotexture. Liver: No hepatic masses. 19 cm in length. Gallbladder: Cholelithiasis. No gallbladder wall thickening. Negative sonographic Cassidy's sign. CBD: 6 mm. Right kidney: No hydronephrosis. IMPRESSION: Cholelithiasis. No gallbladder wall thickening. ACT 112: Negative or not required by law. Electronically signed by: Ashish Cox M.D. 06/16/2022 2:38 PM
[2022-06-16] MEDS ORDERED: OPTIRAY 350 100ml IV ONE (14:59)
--- NOTE | 2022-06-16 15:17 | CT Scan Report ---
CT abd pelvis IV con only CLINICAL HISTORY: Epigastric/RUQ pain TECHNIQUE: Helical axial images of the abdomen and pelvis were obtained and displayed. Automated dose lowering techniques and/or adjustment according to patient size were utilized for this exam. This e xam was performed with intravenous contrast. CT DOSE: 1335.49 mGy.cm COMPARISON: Comparison is made to CT abdomen pelvis 09/12/2016 FINDINGS: Lower chest: Bilateral breast implants are partially visualized. Liver: Unremarkable. No focal lesions are seen. Gallbladder and biliary tree: No calcified gallstones. Normal caliber wall. No intra- or extrahepatic biliary ductal dilation. Pancreas: Unremarkable, no focal lesions. Spleen: Unremarkable. Adrenals: Unremarkable. Kidneys and ureters: Unremarkable. Bladder: Limited evaluation due to underdistention. Reproductive organs: Intrauterine device is noted. Bowel: Diverticulosis is seen without evidence of diverticulitis. The appendix is unremarkable. Lymph nodes Retroperitoneal: Unremarkable. Pelvic: Unremarkable. Mesenteric: Unremarkable. Peritoneum: Normal. Vessels: Unremarkable. Abdominal wall: Unremarkable. Bones: Unremarkable. IMPRESSION: No acute abnormalities, in particular no evidence of pancreatitis or acute cholecystitis. ACT 112: Negative or not required by law. Electronically signed by: Leroy Stuart M.D. 06/16/2022 3:15 PM
[2022-06-16] MEDS ORDERED: HYDROmorphone INJ 1 MG/ML SYRINGE IV STA (15:39)
--- NOTE | 2022-06-16 16:41 | History & Physical Report ---
Date of Service June 16, 2022 Assessment & Plan (1) RUQ abdominal pain: Plan: This is a 32yF with PMH of HTN and anxiety who presents to the [facility] ED on 06/16/22 with complaints of RUQ abdominal pain starting this AM. Pain associated with nausea, along with multiple bouts of emesis and diarrhea. She states this is the 3rd episode of this over the last 1.5 months. In the ER she underwent a RUQ US which showed which showed cholelithiasis--no gallbladder wall thickening. Then underwent a CT a/p that showed no acute abnormalities, in particular no evidence of pancreatitis or acute cholecystitis. WBC 22. LFTs are unremarkable. BP stable, slightly sinus tachycardic. On exam patient's abdomen is soft, non distended with tenderness appreciated in the RUQ. She appears uncomfortable due to symptoms. Story consistent with gallbladder etiology although imaging not confirmatory at this time. Discussed options with patient re: going home with symptom management vs. admit for observation and obtain HIDA scan. She wishes to undergo HIDA for further evaluation. We will admit, keep NPO, IVF, start IV abx given elevated WBC, and obtain HIDA scan tomorrow AM. No narcotics prior to scan. Will follow. History of Present Illness Primary Care Provider: NO PCP This is a 32yF with PMH of HTN and anxiety who presents to the [facility] ED on 06/16/22 with complaints of abdominal pain. Patient reports the pain started around 7AM this AM after drinking coffee. The pain is located in the RUQ region and this was associated with diarrhea and nausea/vomiting. She said she vomited upwards of 10 times. She states this is the 3rd episode of this over the last 1.5 months. She noticed the pain occur before after eating things such as ice cream. The pain would last a few hours and dissipate. She tried calling her PCP this AM who did not have any available appointments until tomorrow, therefore she presented to the ER today as she was concerned this was reoccurring and severe. In the ER she underwent a RUQ US showed which showed cholelithiasis--no gallbladder wall thickening. Thereafter a CT a/p performed showed no acute abnormalities, in particular no evidence of pancreatitis or acute cholecystitis. She reports some chills, no true fevers. No CP/SOB. No prior abdominal surgical history. Allergies Allergy/AdvReac Type Severity Reaction Status Date / Time No Known Allergies Allergy Verified 06/16/22 15:53 Home Medications Medication Instructions Recorded Confirmed Type fluoxetine 20 mg capsule (Prozac) 20 mg PO DAILY 08/22/19 06/16/22 History levonorgestrel 21 mcg/24 hours (8 20 mcg intrauterine CONTINOUS 08/22/19 06/16/22 History yrs) 52 mg intrauterine device (Mirena) omeprazole 20 mg tablet,delayed 20 mg PO DAILY 09/10/20 06/16/22 History release fluoxetine 40 mg capsule 40 mg PO DAILY 06/16/22 06/16/22 History multivitamin 1 tab PO DAILY 06/16/22 06/16/22 History trazodone 50 mg tablet 50 mg PO HS PRN Sleep 06/16/22 06/16/22 History Past Med/Surg History Medical History Anxiety GERD (gastroesophageal reflux disease) Migraine Surgical History History of breast surgery elective enlargement, bilateral History of colonoscopy History of colposcopy Family History Denies family history of Ovarian cancer Breast cancer Colorectal cancer Social History Smoking Status: Never smoker Hx Alcohol Use: No Hx Substance Use: No Preferred Language: Romanian Communication Ability: Effective Java User Interface Developer Required: No Beliefs That Will Affect Care: None Current Living Situation: Family Other Information That Helps Us Care for You: No Feels Safe at Home: Yes Safety Concerns: Feels Safe At This Time Assistive Devices: None Review of Systems Constitutional: + chills; no fever Respiratory: no dyspnea Cardiovascular: no chest pain Gastrointestinal: + abdominal pain, + bloating, + nausea, + vomiting and + diarrhea/loose stools Physical Exam Physical Exam: awake/alert Respiratory: normal respiratory effort; no respiratory distress Gastrointestinal (Abdomen): Inspection/Auscultation: abdomen not distended and no abdominal surgical scar Percussion/Palpation: + abdomen tender (RUQ ttp) and abdomen soft Results & Data Results & Data Vital Signs (Past 12 Hours) Vital Signs Temp Pulse Resp BP Pulse Ox O2 Del Method 06/16/22 16:07 108 H 20 157/80 H 98 Room Air 06/16/22 13:28 98 H 06/16/22 13:20 103 H 16 99 Room Air 06/16/22 13:20 106 H 16 140/79 100 Room Air 06/16/22 10:29 36.8 C 16 06/16/22 10:29 36.8 C 91 H 16 151/86 H 99 Diagnostic Findings ABDOMINAL ULTRASOUND, RIGHT UPPER QUADRANT HISTORY: RUQ pain, elevated wbc. COMPARISON: Abdomen and pelvis CT 09/12/2016. FINDINGS: Pancreas: The the visualized pancreas demonstrates a normal echotexture. Liver: No hepatic masses. 19 cm in length. Gallbladder: Cholelithiasis. No gallbladder wall thickening. Negative so nographic Cassidy's sign. CBD: 6 mm. Right kidney: No hydronephrosis. IMPRESSION: Cholelithiasis. No gallbladder wall thickening. ACT 112: Negative or not required by law. Electronically signed by: Ashish Cox M.D. 06/16/2022 2:[address] abd pelvis IV con only CLINICAL HISTORY: Epigastric/RUQ pain TECHNIQUE: Helical axial images of the abdomen and pelvis were obtained and displayed. Automated dose lowering techniques and/or adjustment according to patient size were utilized for this exam. This exam was performed with intravenous contrast. CT DOSE: 1335.49 mGy.cm COMPARISON: Comparison is made to CT abdomen pelvis 09/12/2016 FINDINGS: Lower chest: Bilateral breast implants are partially visualized. Liver: Unremarkable. No focal lesions are seen. Gallbladder and biliary tree: No calcified gallstones. Normal caliber wall. No intra- or extrahepatic biliary ductal dilation. Pancreas: Unremarkable, no focal lesions. Spleen: Unremarkable. Adrenals: Unremarkable. Kidneys and ureters: Unremarkable. Bladder: Limited evaluation due to underdistention. Reproductive organs: Intrauterine device is noted. Bowel: Diverticulosis is seen without evidence of diverticulitis. The appendix is unremarkable. Lymph nodes Retroperitoneal: Unremarkable. Pelvic: Unremarkable. Mesenteric: Unremarkable. Peritoneum: Normal. Vessels: Unremarkable. Abdominal wall: Unremarkable. Bones: Unremarkable. IMPRESSION: No acute abnormalities, in particular no evidence of pancreatitis or acute cholecystitis. ACT 112: Negative or not required by law Electronically signed by: Leroy Stuart M.D. 06/16/2022 3:15 PM Code Status & VTE Plan VTE Prophylaxis Plan VTE Prophylaxis will be ordered: Yes Supervising Physician Co-Signing Physician Notes I personally saw and evaluated the patient with Mylene Liu PA-C and agree with the assessment and plan. 32-year-old female with cholelithiasis, negative ultrasound and CT for acute cholecystitis CT and ultrasound images were personally reviewed by myself, she does have gallstones however no imaging findings of cholecystitis Due to her leukocytosis, we will admit the patient and get a HIDA scan to rule out acute cholecystitis We will repeat her labs later in the evening Keep n.p.o., give antibiotics PG Care Time/CCT Total # of Minutes Spent Total Time Spent with Patient: Total time spent is greater than 50% in coordination of care (as documented) at patient's floor/unit and/or counseling patient: Coding Level of Care Code 58293 INT INP/OBS CARE 1/40MIN Diagnoses RUQ abdominal pain R10.11
[2022-06-16] MEDS ORDERED: ACETAMINOPHEN 1,000 MG/100 ML VIAL IV PRN (19:36)
[2022-06-16] MEDS ORDERED: ONDANSETRON INJ 2 MG/ML 2 ML VIAL IV PRN (19:36)
[2022-06-16] MEDS ORDERED: traZODone HCL 50 MG TAB PO PRN (19:36)
[2022-06-16] MEDS: SODIUM CHLORIDE 0.9% 1000ML 1,000 ML IV SCH (19:59)
[2022-06-16 20:04] LABS: Hematocrit (blood only) 39.3 % (37.0-47.0); Hemoglobin 13.8 g/dl (12.0-16.0); Mean Corpuscular Hemoglobin 33.3 pg (25.0-34.0); Mean Corpuscular Hgb Conc 35.1 g/dL (32.0-36.0); Mean Corpuscular Volume 94.7 fL (80.0-100.0); Mean Platelet Volume 9.4 fL (9.4-12.4); Platelet Count 325 K/uL (130-400); RDW Coefficient of Variation 11.9 % (11.5-14.5); RDW Standard Deviation 40.8 fL (36.4-46.3); Red Blood Count 4.15 M/uL (4.20-5.40); White Blood Count 14.38 K/ul (4.8-10.8)
[2022-06-16] MEDS: PIPERACILLIN/TAZOBACTAM 4.5 GM in DEXTROSE 5% 100 ML IV SCH (20:13)
[2022-06-16 20:15] LABS: Albumin Level 4.4 gm/dl (3.4-5.0); BUN Creatinine Ratio 18.6 (10-20); Bilirubin Direct 0.1 mg/dl (0-0.2); Bilirubin,Total 0.7 mg/dl (0.2-1.0); Calcium 8.9 mg/dl (8.6-10.3); Creatinine Clr Calc Pharmacy 113.1 ml/min; Est GFR (African American) 102.9 ml/min; Est GFR (Non-African American) 88.8 ml/min; Total Protein 7.4 gm/dl (6.0-8.3)
[2022-06-16 20:23] LABS: Basophils # (auto) 0.06 K/uL (0-0.2); Basophils % (auto) 0.4 %; Eosinophils # (auto) 0.03 K/uL (0-0.50); Eosinophils % (auto) 0.2 %; Immature Granulocytes # (auto) 0.06 K/uL (0.01-0.20); Immature Granulocytes % (auto) 0.4 %; Lymphocytes # (auto) 0.46 K/uL (1.2-3.4); Lymphocytes % (auto) 3.2 %; Monocytes % (auto) 2.8 %; Neutrophils # (auto) 13.37 K/uL (1.40-6.50)
[2022-06-16] MEDS ORDERED: SODIUM CHLORIDE 0.9% 1000ML 250 ML IV ONE (23:23)
[2022-06-17] MEDS: SODIUM CHLORIDE 0.9% 1000ML 1,000 ML IV SCH (03:45)
[2022-06-17] MEDS: PIPERACILLIN/TAZOBACTAM 4.5 GM in DEXTROSE 5% 100 ML IV SCH (04:13)
[2022-06-17] MEDS ORDERED: SODIUM CHLORIDE 0.9% IV ONE (08:00)
[2022-06-17] MEDS ORDERED: SINCALIDE IV ONE (08:00)
[2022-06-17] MEDS ORDERED: FLUoxetine HCL 20 MG CAP PO SCH ×2 (09:00)
--- NOTE | 2022-06-17 09:49 | Nuclear Medicine Report ---
NM hepatobiliary EF CLINICAL HISTORY: 32 years-old Female with eval for acute mustapha. RUQ pain. Acute right upper quadran t abdominal pain TECHNIQUE: Following the intravenous administration of 5.5 mCi of technetium-99m Choletec, sequentia l abdominal images were obtained. In order to evaluate the contractile response of the gallbladder, 2.05 mcg of Kinevac was administered by slow intravenous infusion over 30 min starting approximately 60 min after the administration of the radiopharmaceutical. Sequential imaging was continued for 45 min after the start of the Kinevac infusion. COMPARISON: CT abdomen and pelvis 06/16/2022 FINDINGS: There is prompt, uniform accumulation of the tracer by the liver. There is normal filling of the int rahepatic ducts, common bile duct and gallbladder and normal excretion of the tracer into the duodenu m. There is delayed contraction of the gallbladder. The calculated gallbladder ejection fraction wa s unable to be calculated secondary to radiotracer within loops of colon overlying the gallbladder. T here is moderate enterogastric reflux. IMPRESSION: 1. No evidence of cystic or common bile duct obstruction. 2. The gallbladder fills normally with radiotracer, however there is abnormal contraction. The ejecti on fraction was unable to be calculated secondary to hepatic flexure overlying the gallbladder on the delayed images. 3. Moderate enterogastric reflux. ACT 112: Negative or not required by law. The above report was generated using voice recognition software. It may contain grammatical, syntax o r spelling errors. Electronically signed by: Mau Hoff M.D. 06/17/2022 9:47 AM
[2022-06-17 10:49] LABS: Basophils # (auto) 0.04 K/uL (0-0.2); Basophils % (auto) 0.6 %; Eosinophils # (auto) 0.05 K/uL (0-0.50); Eosinophils % (auto) 0.7 %; Hematocrit (blood only) 35.4 % (37.0-47.0); Immature Granulocytes # (auto) 0.03 K/uL (0.01-0.20); Immature Granulocytes % (auto) 0.4 %; Lymphocytes # (auto) 1.45 K/uL (1.2-3.4); Lymphocytes % (auto) 20.1 %; Mean Corpuscular Hemoglobin 32.9 pg (25.0-34.0); Mean Corpuscular Hgb Conc 33.9 g/dL (32.0-36.0); Mean Platelet Volume 9.6 fL (9.4-12.4); Monocytes % (auto) 5.6 %; Neutrophils # (auto) 5.23 K/uL (1.40-6.50); Neutrophils % (auto) 72.6 %; Platelet Count 266 K/uL (130-400); RDW Coefficient of Variation 11.9 % (11.5-14.5); RDW Standard Deviation 42.3 fL (36.4-46.3); Red Blood Count 3.65 M/uL (4.20-5.40)
[2022-06-17 11:04] LABS: Albumin Level 3.9 gm/dl (3.4-5.0); BUN Creatinine Ratio 14.9 (10-20); Bilirubin Direct 0.1 mg/dl (0-0.2); Bilirubin,Total 0.6 mg/dl (0.2-1.0); Calcium 8.4 mg/dl (8.6-10.3); Creatinine Clr Calc Pharmacy 102.9 ml/min; Est GFR (African American) 92.4 ml/min; Est GFR (Non-African American) 79.7 ml/min; Potassium 3.9 mmol/L (3.5-5.1); Total Protein 6.5 gm/dl (6.0-8.3)
--- NOTE | 2022-06-17 11:07 | Surgery Progress Note ---
Date of Service June 17, 2022 Assessment & Plan (1) Cholelithiasis: Plan: Her HIDA images and results were personally viewed by myself, no signs of cystic duct obstruction She is tolerating clear liquids and will advance her as tolerated Her leukocytosis was improved on repeat labs We will discharge her home today and she will follow-up with me next week to discuss elective cholecystectomy (2) Leukocytosis: Admission and Anticipated Discharge Date Admission Date: June 16, 2022 Subjective Patient seen and examined. Her abdominal pains much improved. Denies nausea or vomiting. Afebrile. She is tolerating clear liquids. Review of Systems Constitutional: no fever and no chills Physical Exam Constitutional: WD/WN, vitals as above Gastrointestinal (Abdomen): Inspection/Auscultation: abdomen normal to inspection; abdomen not distended Percussion/Palpation: + abdomen tender (Mild right upper quadrant) and abdomen soft; no guarding, abdomen not rigid and no hernia Negative Cassidy's Results & Data Vital Signs (Past 12 Hours) Vital Signs Temp Pulse Resp BP Pulse Ox O2 Del Method 06/17/22 07:03 36.8 C 79 16 114/75 96 Room Air 06/17/22 04:03 37.2 C 92 H 18 130/67 95 Room Air 06/17/22 00:38 37.6 C H 99 H 16 109/76 97 Room Air PG Care Time/CCT Total # of Minutes Spent Total Time Spent with Patient: Total time spent is greater than 50% in coordination of care (as documented) at patient's floor/unit and/or counseling patient: Coding Level of Care Code 81066 SUB INP/OBS CARE 04/13MIN Diagnoses Cholelithiasis K80.20 Leukocytosis D72.829 Leukocytosis type: unspecified (2) Leukocytosis Leukocytosis type: unspecified Qualified Code(s): D72.829 - Elevated white blood cell count, unspecified
== END 2022-06-17 13:16 | disposition home or self-care (01) ==
LOC: 3N 10:28 → ED 10:28 → 3N 19:22